=== PATIENT | male | born 1990 | race Caucasian/White ===

== ENCOUNTER 2022-07-16 20:14 | Emergency (ER) | payer OTHER, SELFPAY ==
[2022-07-16 20:16] VITALS: BP 162/80; PULSE 86; RESP 16; TEMP 37.1; O2SAT 99
--- NOTE | 2022-07-16 20:46 | ED.URI ---
HPI - URI/Sore Throat General Chief Complaint: Upper Respiratory Infection Stated Complaint: sinus infection , dental pain Time Seen by Provider: 07/16/22 20:16 History of Present Illness HPI Narrative: Pt presents with sinus and right tooth pain for over a week but much worse over the last two days. Pt says it started with flu like illnes over a week ago with a cough and runny nose but those symptoms improved but the sinus pain started a few days ago and that and the pain in his upper teeth on the right have worsened. Pt denies fever or vomiting. Related Data Allergies Allergy/AdvReac Type Severity Reaction Status Date / Time No Known Allergies Allergy Mild Verified 07/16/22 20:43 Review of Systems Review of Systems: All systems reviewed & are unremarkable except as noted in HPI and below Exam Const: General: healthy appearing and alert Nutritional Appearance: well nourished Orientation/consciousness: patient oriented x3 Limitations: no limitations HENMT: Face and sinus: sinus tenderness maxillary Teeth and gingiva: abnormal tooth and associated gingiva (extensive dental decay with most teeth broken off at gums no abscess) Throat: posterior oropharynx normal Eyes: EOM: EOMs intact bilaterally Neck: Neck: normal visual inspection Resp: Effort & Inspection: normal respiratory effort Auscultation: clear to auscultation bilaterally Cardio: Rate: regular rate Rhythm: regular rhythm GI: GI Palp: Yes Soft to palpation Neuro: General: patient oriented x3, moves all extremities, no meningeal signs, no focal motor deficits and CN's II-XI intact bilaterally Cranial nerves: Yes Nystagmus not present Speech: normal speech Extrem: General: normal to inspection and no clubbing, cyanosis or edema Psych: Mental Status: mental status grossly normal Affect: normal affect Course Vital Signs Vital signs: Vital Signs Temperature 98.8 F 07/16/22 20:16 Pulse Rate 86 07/16/22 20:16 Respiratory Rate 16 07/16/22 20:16 Blood Pressure 162/80 H 07/16/22 20:16 Pulse Oximetry 99 07/16/22 20:16 Oxygen Delivery Room Air 07/16/22 20:16 Temperature 98.8 F 07/16/22 20:16 Pulse Rate 86 07/16/22 20:16 Respiratory Rate 16 07/16/22 20:16 Blood Pressure 162/80 H 07/16/22 20:16 Pulse Oximetry 99 07/16/22 20:16 Oxygen Delivery Room Air 07/16/22 20:16 MDM - URI/Sore Throat MDM Narrative Medical decision making narrative: likely sinusitis with dental involvement of upper teeth but could be dental carries as well. P has been trying motrin and tylenol without relief so may require a few days of norco in addition to augmentin Differential Diagnosis Differential diagnosis: Likely upper respiratory infection, sinusitis and other (dental carries) Discharge Plan Discharge Clinical Impression: Sinusitis, Pain due to dental caries Patient Disposition: Home, Self-Care Condition: Stable Instructions: Antibiotic Form, Sinusitis (ED) Prescriptions: New amoxicillin-pot clavulanate 875-125 mg tablet 1 tablet PO Q12H Qty: 20 0RF hydrocodone-acetaminophen 5-325 mg tablet 1 tablet PO Q4H PRN (Reason: pain) Qty: 14 0RF Follow-up/Referrals: PHYSICIAN,[facility] [Primary Care Provider] -
== END 2022-07-16 21:12 | disposition home or self-care (01) ==
LOC: ANHED 21:02
PROVIDERS: Emergency Provider Emergency Medicine
DX: K02.9 Dental caries, unspecified (principal); J32.9 Chronic sinusitis, unspecified
CPT/HCPCS: 99283